=== PATIENT | female | born 1955 | race Two or more races ===

== ENCOUNTER → 2019-10-01 | Outpatient (CLI) | payer MEDICAID, OTHER | END | disposition home or self-care (01) | LOC: LAB 08:38 | DX: N95.1 Menopausal and female climacteric states (principal); Z79.890 Hormone replacement therapy | CPT/HCPCS: 36415; 82670; 83001; 84403 ==

== ENCOUNTER → 2019-11-24 | Outpatient (CLI) | payer OTHER ==
[2019-11-24 07:18] LABS: Eosinophils # (auto) 0.1 10 ^3/uL (0-0.8); Lymphocytes % (auto) 27.8 % (10.0-50.0); White Blood Cell 5.2 10^3/uL (4.4-10.8)
[2019-11-24 07:20] LABS: Basophils # (auto) 0 10 ^3/uL (0-0.2); Basophils % (auto) 0.8 % (0.0-2.0); Eosinophils % (auto) 2.3 % (0.0-7.0); Hematocrit 38.6 % (36.0-46.0); Hemoglobin 12.5 g/dL (12.2-16.2); Lymphocytes # (auto) 1.5 10 ^3/uL (0.4-5.4); Mean Corpuscular Hemoglobin 27.5 pg (28.0-32.0); Mean Corpuscular Hgb Conc. 32.3 g/dL (32.0-36.0); Mean Corpuscular Volume 85.1 fL (80.0-100.0); Monocytes # (auto) 0.4 10 ^3/uL (0-1.3); Monocytes % (auto) 8.4 % (0.0-12.0); Neutrophils # (auto) 3.2 10 ^3/uL (1.6-8.6); Neutrophils % (auto) 60.7 % (37.0-80.0); Platelet Count (auto) 232 10^3/uL (140-450); Red Blood Cells 4.53 10^6/uL (4.0-5.20)
[2019-11-24 08:01] LABS: Potassium 3.7 mmol/L (3.5-5.1)
[2019-11-24 08:09] LABS: Albumin 3.4 g/dL (3.4-5.0); BUN/Creatinine Ratio 27.8; Bilirubin, Total 0.6 mg/dL (0.2-1.0); Calcium 8.3 mg/dL (8.5-10.1); Total Protein 6.7 g/dL (6.4-8.2)
[2019-11-24 10:15] LABS: Free T3 2.36 pg/mL (2.3-4.2); Free T4 (Free Thyroxine) 0.72 ng/dL (0.89-1.76)
== END | disposition home or self-care (01) ==
LOC: LAB 07:06
PROVIDERS: ATTEND Internal Medicine
DX: E78.5 Hyperlipidemia, unspecified (principal); R73.01 Impaired fasting glucose
CPT/HCPCS: 36415; 80053; 80061; 83036; 84439; 84443; 84481; 85025